=== PATIENT | female | born 2000 | race African-American/Black ===

== ENCOUNTER 2025-03-19 22:29 | Emergency (ER) | payer MEDICAID ==
[~2025-03-19] VITALS: Ht 167.6 cm; Wt 73.0 kg
[2025-03-19 22:35] VITALS: O2SAT 99
[2025-03-19 22:47] VITALS: BP 121/77; PULSE 117; RESP 18; TEMP 36.5; O2SAT 100
== END 2025-03-19 23:03 | disposition home or self-care (01) ==
LOC: ER 22:29
DX: R73.9 Hyperglycemia, unspecified (principal); Z59.00 Homelessness unspecified; F41.9 Anxiety disorder, unspecified
CPT/HCPCS: 82962; 99282

== ENCOUNTER 2025-03-20 01:17 | Emergency (ER) | payer MEDICAID ==
[~2025-03-20] VITALS: Ht 167.6 cm; Wt 73.0 kg
[2025-03-20 01:24] VITALS: BP 111/78; TEMP 36.7; O2SAT 100
[2025-03-20 01:25] VITALS: PULSE 100; RESP 18; O2SAT 95
== END 2025-03-20 01:50 | disposition home or self-care (01) ==
LOC: ER 01:17
DX: Z00.00 Encounter for general adult medical examination without abnormal findings (principal); F39 Unspecified mood [affective] disorder; Z59.01 Sheltered homelessness
CPT/HCPCS: 99282

== ENCOUNTER 2025-03-20 02:48 | Emergency (ER) | payer MEDICAID ==
[~2025-03-20] VITALS: Ht 165.1 cm; Wt 73.0 kg
[2025-03-20] MEDS: LORAZEPAM 1MG TABLET ONE (03:34)
[2025-03-20 05:54] VITALS: O2SAT 100
[2025-03-20] MEDS: LORAZEPAM 2MG/ML UD SYRINGE IM NR (06:02)
[2025-03-20 06:10] LABS: BASOPHILS % 0.6 % (0.0-2.0); EOSINOPHILS % 0.9 % (0.0-5.0); HEMATOCRIT. 37.2 % (36.0-48.0); HEMOGLOBIN. 12.2 g/dL (12.0-16.0); LYMPHOCYTES % 18.1 % (20.0-50.0); MEAN PLATELET VOLUME 8.4 fl (7.4-10.4); MONOCYTES % 9.1 % (2.0-8.0); NEUTROPHILS % 71.3 % (40.0-76.0); PLATELET 245 x1000/uL (130-400); RED BLOOD CELL COUNT 4.48 mill/uL (4.2-5.4); RED CELL DISTRIBUTION WIDTH 13.5 % (11.6-14.6)
[2025-03-20 06:39] LABS: CREATININE 0.7 mg/dL (0.6-1.0); ETHANOL BLOOD < 10 mg/dL (<10); UREA NITROGEN BLOOD 10 mg/dL (9-23)
[2025-03-20 06:41] LABS: ASPARTATE AMINOTRANSFERASE 17 IU/L (<34); BILIRUBIN DIRECT 0.2 mg/dL (<=3.0); BILIRUBIN TOTAL 0.6 mg/dL (0.1-1.0); PROTEIN TOTAL 7.2 g/dL (6.0-8.3)
[2025-03-20 06:44] LABS: HCG SCREEN NEGATIVE
[2025-03-20] MEDS: RISPERIDONE 0.5MG TABLET PO SCH (10:40)
[2025-03-20 14:57] LABS: CLARITY URINE CLEAR (CLEAR); COLOR URINE YELLOW (YELLOW)
[2025-03-20 14:58] LABS: GLUCOSE URINE NEGATIVE (NEGATIVE); KETONES URINE 1+ (NEGATIVE); LEUKOCYTE ESTERASE URINE TRACE (NEGATIVE); NITRITE URINE NEGATIVE (NEGATIVE); OCCULT BLOOD URINE 3+ (NEGATIVE); PH URINE 6.0 (4.5-8.0); PROTEIN URINE NEGATIVE (NEGATIVE); SPECIFIC GRAVITY URINE 1.017 (1.005-1.030); UROBILINOGEN URINE 1.0 E.U./dL (0.2-1.0)
[2025-03-20 15:12] LABS: *AMPHETAMINES SCREEN URINE NEGATIVE (NEGATIVE)
[2025-03-20 15:13] LABS: *BARBITURATES SCREEN URINE NEGATIVE (NEGATIVE); *BENZODIAZEPINES SCREEN URINE NEGATIVE (NEGATIVE); *COCAINE SCREEN URINE NEGATIVE (NEGATIVE); CANNABINOID URINE SCREEN NEGATIVE (NEGATIVE); ECSTASY MDMA SCREEN URINE NEGATIVE (NEGATIVE); METHADONE URINE SCREEN NEGATIVE (NEGATIVE); OPIATES URINE SCREEN NEGATIVE (NEGATIVE); PHENCYCLIDINE URINE SCREEN NEGATIVE (NEGATIVE)
[2025-03-20 15:50] LABS: BACTERIA URINE 1+; RBC URINE 15-25 /hpf (0-2); SQUAMOUS EPITHELIAL CELL URINE 1+ /lpf (RARE/1+)
[2025-03-20] MEDS: LORAZEPAM 1MG TABLET PO SCH (19:50)
[2025-03-20 21:19] VITALS: BP 113/72; PULSE 90; RESP 16; TEMP 36.7; O2SAT 100
== END 2025-03-20 21:41 ==
LOC: ER 02:48
DX: F23 Brief psychotic disorder (principal); F41.9 Anxiety disorder, unspecified; F31.9 Bipolar disorder, unspecified; Z59.00 Homelessness unspecified; Z20.822 Contact with and (suspected) exposure to COVID-19; Z79.899 Other long term (current) drug therapy
CPT/HCPCS: 80076; 80305; 80048; 81003; 80307; 80329; 80320; 84703; 85025; 36415; 96372; 99285; 87426; J2060; G0480